=== PATIENT | female | born 1955 | race Caucasian/White ===

== ENCOUNTER 2020-07-09 12:31 | Outpatient (CLI) | payer MEDICARE, OTHER ==
[2020-07-09 21:22] LABS: SARS-CoV-2 PCR by NAA Not Detected (NotDetected)
== END 2020-07-09 12:32 | disposition home or self-care (01) ==
LOC: CSHLAB 12:31
PROVIDERS: ATTEND Internal Medicine Gastroenterology
DX: Z20.822 Contact with and (suspected) exposure to COVID-19 (principal); R13.10 Dysphagia, unspecified
CPT/HCPCS: 87635; U0003; U0005

== ENCOUNTER 2020-07-14 07:02 | Day surgery (SDC) | payer MEDICARE, OTHER ==
[2020-07-14] MEDS ORDERED: Lidocaine 1% MPF 2 ML VIAL ONE (08:21)
[2020-07-14] MEDS ORDERED: PROPOFOL 20 ML ONE (08:38)
== END 2020-07-14 09:50 | disposition home or self-care (01) ==
LOC: CSHSDC 07:02
PROVIDERS: ATTEND Internal Medicine Gastroenterology
PROC: 0D758ZZ Dilation of Esophagus, Via Natural or Artificial Opening Endoscopic (ICD-10-PCS; principal; 2020-07-14)
DX: R13.10 Dysphagia, unspecified (principal)
CPT/HCPCS: J2704

== ENCOUNTER 2020-07-18 11:40 | Outpatient (CLI) | payer MEDICARE, OTHER ==
[2020-07-19 01:27] LABS: SARS-CoV-2 PCR by NAA Not Detected (NotDetected)
== END 2020-07-18 11:41 | disposition home or self-care (01) ==
LOC: CSHLAB 11:40
PROVIDERS: ATTEND Internal Medicine Gastroenterology
DX: Z20.822 Contact with and (suspected) exposure to COVID-19 (principal); R13.10 Dysphagia, unspecified
CPT/HCPCS: 87635; U0003; U0005

== ENCOUNTER 2020-07-23 06:04 | Day surgery (SDC) | payer MEDICARE, OTHER ==
[2020-07-21 15:21] VITALS: BMI 28.1
[2020-07-23] MEDS ORDERED: Lidocaine 1% MPF 2 ML VIAL ONE (07:47)
[2020-07-23] MEDS ORDERED: PROPOFOL 40 ML ONE (08:21)
[2020-07-23] MEDS ORDERED: Ketamine 50 MG/ML (10ML VIAL) ONE (08:21)
== END 2020-07-23 09:40 | disposition home or self-care (01) ==
LOC: CSHSDC 06:04
PROVIDERS: ATTEND Internal Medicine Gastroenterology
PROC: 0D758ZZ Dilation of Esophagus, Via Natural or Artificial Opening Endoscopic (ICD-10-PCS; principal; 2020-07-23)
DX: R13.10 Dysphagia, unspecified (principal); K29.30 Chronic superficial gastritis without bleeding; K22.10 Ulcer of esophagus without bleeding; K44.9 Diaphragmatic hernia without obstruction or gangrene
CPT/HCPCS: 88305; J2704